=== PATIENT | female | born 1955 | race Caucasian/White ===

== ENCOUNTER 2018-10-09 16:50 | Emergency (ER) | payer BC ==
[2018-10-09 17:00] VITALS: BP 129/77
--- NOTE | 2018-10-09 17:15 | UC ---
Back Pain HPI - HPI Summary HPI Summary: 62-year-old female who recently returned from a long trip which included a lot of bus rides and air travel to [place], [place] and [facility]. She started experiencing some left buttock sharp pain which shoots down her posterior left leg since the trip. - History of Current Complaint Chief Complaint: UCLowerExtremity Stated Complaint: LEG PAIN Time Seen by Provider: 10/09/18 16:53 Hx Obtained From: Patient ?: No Onset/Duration: Gradual Onset Timing: Intermittent Severity Initially: Mild Severity Currently: Mild Pain Intensity: 7 Character: Sharp - Occasional sharp shooting pain down her left buttock into her posterior left leg Aggravating Factor(s): Bending, Other - Long periods of sitting increase the pain. Alleviating Factor(s): Rest, OTC Meds - Patient has taken Aleve with improvement. Associated Signs And Symptoms: Negative: Weakness, Numbness, Tingling, Abdominal Pain, Flank Pain, Bladder Incontinence, Bowel Incontinence, Pain with Weight Bearing - Allergies/Home Medications Allergies/Adverse Reactions: Allergies Allergy/AdvReac Type Severity Reaction Status Date / Time No Known Allergies Allergy Verified 10/09/18 17:00 Home Medications: Home Medications Famotidine [Pepcid AC Maximum Strengt] 20 mg PO DAILY PRN 10/09/18 [History Confirmed 10/09/18] Naproxen Sodium [Aleve] 1 tab PO ONCE PRN 10/09/18 [History Confirmed 10/09/18] PMH/Surg Hx/FS Hx/Imm Hx Previously Healthy: Yes Endocrine History: Dyslipidemia GI/ History: Gastroesophageal Reflux Psychological History: Depression - Surgical History Surgical History: None - Family History Known Family History: Positive: Hypertension Negative: Cardiac Disease, Diabetes - Social History Alcohol Use: Occasionally Substance Use Type: None Smoking Status (MU): Never Smoked Tobacco Review of Systems All Other Systems Reviewed And Are Negative: Yes Motor: Positive: Negative Neurovascular: Positive: Negative Musculoskeletal: Negative: Calf Tenderness, Edema Neurological: Negative: Weakness, Paresthesia, Numbness Is Patient Immunocompromised?: No Physical Exam Triage Information Reviewed: Yes Appearance: Well-Appearing, No Pain Distress, Well-Nourished Vital Signs: Initial Vital Signs Temp 99.4 F 10/09/18 16:54 Pulse 89 10/09/18 16:54 Resp 18 10/09/18 16:54 BP 129/77 10/09/18 16:54 Pulse Ox 97 10/09/18 16:54 Vital Signs Reviewed: Yes Eyes: Positive: Conjunctiva Clear ENT: Positive: Hearing grossly normal, Pharynx normal, TMs normal, Uvula midline Neck: Positive: Supple, Nontender, No Lymphadenopathy Respiratory: Positive: Lungs clear, Normal breath sounds, No respiratory distress, No accessory muscle use Cardiovascular: Positive: RRR, No Murmur, Pulses Normal, Brisk Capillary Refill Musculoskeletal: Positive: Strength Intact, ROM Intact, No Edema, Other: - Mild tenderness on palpation left mid buttock. Negative straight leg raise, good peripheral pulses, neuro sensation, capillary refill, Calf is nontender, no bruising, erythema, swelling Neurological: Positive: Alert, Muscle Tone Normal Psychological Exam: Normal Skin Exam: Normal Back Pain Course/Dx - Course Course Of Treatment: The patient is comfortable here and has minimal pain since she took an Aleve earlier today. She is to continue the Aleve twice a day and avoid movements that cause pain. We did discuss possible Physical Therapy. She will follow up with her primary care provider if no improvement in 1 week. She did schedule a personal clothing laundry aide for exercises however she is going to discuss sciatica with a personal clothing laundry aide to see what exercises she can do without exacerbating the sciatica. She was also given exercises for low back strain. - Differential Dx/Diagnosis Provider Diagnosis: Left sided sciatica Discharge - Sign-Out/Discharge Documenting (check all that apply): Patient Departure All imaging exams completed and their final reports reviewed: No Studies - Discharge Plan Condition: Fair Disposition: HOME Patient Education Materials: Sciatica (ED), Lower Back Exercises (ED) Referrals: Phillip Rojas MD [Primary Care Provider] - Additional Instructions: Avoid excessive standing, excessive sitting or long car rides. Avoid movements that cause pain. He may try applying ice to the sore area or heat whichever feels better. You may take your Aleve 2 tablets twice a day for pain. If you have no improvement after one week follow-up with your primary care provider to discuss possible physical therapy. - Billing Disposition and Condition Condition: FAIR Disposition: Home - Attestation Statements Provider Attestation: I was available for consult. This patient was seen by the ANTONI. The patient was not presented to, seen by, or examined by me. -Kimmy
== END 2018-10-09 17:20 | disposition home or self-care (01) ==
LOC: UCEAST 16:50
DX: M54.32 Sciatica, left side (principal)
CPT/HCPCS: 99211; G0463

== ENCOUNTER 2020-12-16 09:45 | Inpatient (IN) ==
[~2020-12-16 09:45] MED LIST: Acetaminophen IV 1 GM/100ML 100 ML IV ONE; Buffered Lidocaine 1% SYRIN 1 ml INTRADERM ONE; Lactated Ringers 1000 ml BAG 1,000 ML IV SCH
[2020-12-16] MEDS ORDERED: Acetaminophen IV 1 GM/100ML 100 ML IV ONE (10:30)
[2020-12-16] MEDS ORDERED: Heparin 5000 UNITS/ML 1 mL VIAL ONE (10:30)
[2020-12-16] MEDS ORDERED: ceFAZolin 2 GM in NS PREMIX 2 GM/100 ML BAG IVPB ONE (10:31)
[2020-12-16] MEDS ORDERED: Ondansetron 4 mg VIAL 2 MG/ML 2 ml VIAL IV PRN ×2 (11:46→17:08)
[2020-12-16] MEDS ORDERED: Naloxone 0.4 mg VIAL 0.4 mg/ml 1 ml VIAL IV PRN (11:46)
[2020-12-16] MEDS ORDERED: HYDROmorphone 1 MG/1 ML SYRINGE IV PRN (11:46)
[2020-12-16] MEDS ORDERED: Metoclopramide 5 MG/ML VIAL (10 mg) IV PRN (11:46)
[2020-12-16] MEDS ORDERED: Propofol 10 MG/ML 20 ML BTL ONE (12:00)
[2020-12-16] MEDS ORDERED: Midazolam 2 mg/2 ml VIAL 1 mg/ml 2 ml VIAL (2 mg) ONE (12:00)
[2020-12-16] MEDS ORDERED: fentaNYL 100 mcg/2 ml 50 MCG/ML VIAL ONE ×2 (12:00→13:02)
[2020-12-16] MEDS ORDERED: Rocuronium 50 mg VIAL 10 mg/ml 5 ml VIAL (50 mg) ONE ×5 (12:00→16:21)
[2020-12-16] MEDS ORDERED: Bupivacaine 0.25% SDV 30 ML ONE (12:11)
[2020-12-16] MEDS ORDERED: HYDROmorphone 1 MG/1 ML SYRINGE ONE (13:34)
[2020-12-16] MEDS ORDERED: Metoclopramide 5 MG/ML VIAL (10 mg) ONE (13:42)
[2020-12-16] MEDS ORDERED: Ondansetron 4 mg VIAL 2 MG/ML 2 ml VIAL ONE ×2 (13:42→16:45)
[2020-12-16] MEDS ORDERED: Dexamethasone IV 4 MG/ML VIAL 1 ml VIAL ONE (13:42)
[2020-12-16] MEDS ORDERED: EPHEDrine (Pressors) 50 MG/ML VIAL ONE (13:46)
[2020-12-16] MEDS ORDERED: ceFAZolin 1 GM ADVAN 1 GM ADDV.VIAL IVPB ONE (16:24)
[2020-12-16] MEDS ORDERED: ceFAZolin VIAL VIAL ONE (16:32)
[2020-12-16] MEDS ORDERED: oxyCODONE/Acetamin 5/325 mg TAB PO PRN (17:08)
[2020-12-16] MEDS ORDERED: HYDROmorphone 1 MG/1 ML SYRINGE IV SLOW PU PRN (17:08)
[2020-12-16] MEDS: Lactated Ringers 1000 ml BAG 1,000 ML IV SCH (19:16)
[2020-12-16] MEDS: Famotidine IV 10 MG/ML 2 ml VIAL (20 mg) IV SLOW PU SCH (21:51)
[2020-12-17] MEDS: Lactated Ringers 1000 ml BAG 1,000 ML IV SCH (04:48)
[2020-12-17 06:25] LABS: Hematocrit 37 % (35-47); Hemoglobin 12.4 g/dL (12.0-16.0); Mean Corpuscular HGB Conc 34 g/dL (31-36); Mean Corpuscular Hemoglobin 30 pg (27-31); Mean Corpuscular Volume 89 fL (80-97); Mean Platelet Volume 7.9 fL (7.4-10.4); Platelet Count 229 10^3/uL (150-450); Red Blood Count 4.16 10^6 /uL (3.70-4.87); Red Cell Distribution Width 14 % (10-15); White Blood Count 12.9 10^3/uL (3.5-10.8)
[2020-12-17 06:45] LABS: Calcium 8.5 mg/dL (8.6-10.3); EGFR African American 85.6 (>60); EGFR Non-African American 70.7 (>60); Potassium 4.2 mmol/L (3.5-5.0)
[2020-12-17 07:59] LABS: ABS Lymphocytes 1.7 10^3/ul (1.0-4.8); ABS Monocytes 1.8 10^3/ul (0-0.8); ABS Neutrophils 9.4 10^3/ul (1.5-7.7); Lymphocyte % 13.4 %
[2020-12-17 08:23] VITALS: BP 137/79
[2020-12-17] MEDS: Famotidine IV 10 MG/ML 2 ml VIAL (20 mg) IV SLOW PU SCH (09:24)
[2020-12-19] MEDS ORDERED: Scopolamine PATCH Remove NOTE PATCH OFF ONE (10:00)
== END 2020-12-17 11:45 | disposition home or self-care (01) | DRG 328 ==
LOC: AA 09:45 → SSU 17:08
PROVIDERS: ADMIT Surgery; ATTEND Surgery